=== PATIENT | male | born 1965 | race Caucasian/White ===

== ENCOUNTER 2022-04-17 21:40 | Emergency (ER) | payer BC ==
[2022-04-17] MEDS ORDERED: Diphtheria,Pertussis(Acell),Tetanus Vaccine 0.5 ML Syringe IM ONE (23:26)
== END 2022-04-17 23:55 | disposition home or self-care (01) ==
LOC: MW.ED 21:40
DX: S61.452A Open bite of left hand, initial encounter (principal); Z23 Encounter for immunization; W54.0XXA Bitten by dog, initial encounter; Y93.01 Activity, walking, marching and hiking
CPT/HCPCS: 90471; 90715; 99283

== ENCOUNTER 2023-02-26 20:21 | Emergency (ER) | payer BC ==
[2023-02-26] MEDS ORDERED: Nirmatrelvir/Ritonavir 300 MG/100 MG Dose Pack PO STA (21:58)
[2023-02-26 21:59] LABS: CORONAVIRUS COVID-19 NAA POSITIVE (NEGATIVE); INFLUENZA A NAA NEGATIVE (NEGATIVE); INFLUENZA B NAA NEGATIVE (NEGATIVE)
== END 2023-02-26 22:22 | disposition home or self-care (01) ==
LOC: MW.ED 20:21
DX: U07.1 COVID-19 (principal)
CPT/HCPCS: 0240U; 99283; A9270